=== PATIENT | female | born 1995 | race Caucasian/White ===

== ENCOUNTER 2017-09-04 14:38 | Emergency (ER) | payer BC, OTHER ==
[2017-09-04] MEDS ORDERED: DIPHENHYDRAMINE HCL 50 MG/ML VIAL IV ONE (16:06)
[2017-09-04] MEDS ORDERED: NORMAL SALINE 1000 ML 1,000 ML IV ONE (16:06)
[2017-09-04] MEDS ORDERED: METOCLOPRAMIDE HCL INJ/PF 10 MG/2 ML SDV IV ONE (16:07)
[2017-09-04 16:56] LABS: ABSOLUTE BASOPHILS # (AUTO) 0.1 10^3/uL (0.0-0.2); ABSOLUTE EOSINOPHILS # (AUTO) 0.1 10^3/uL (0.0-0.6); ABSOLUTE MONOCYTES (AUTO) 0.4 10^3/uL (0.1-1.4); ABSOLUTE NEUT (AUTO) 5.1 10^3/uL (1.7-8.2); BASOPHILS % (AUTO) 0.7 % (0-2); EOSINOPHILS % (AUTO) 0.8 % (0-6); HEMATOCRIT 39.1 % (36.0-47.0); HEMOGLOBIN 13.5 g/dL (12.0-15.5); HGB HCT DIFFERENCE 1.4; MEAN CORPUSCULAR HEMOGLOBIN 30.8 pg (27.0-33.4); MEAN CORPUSCULAR HGB CONC 34.5 g/dL (32.0-36.0); MEAN CORPUSCULAR VOLUME 89 fl (80-97); MONOCYTES % (AUTO) 4.9 % (3-13); RED BLOOD COUNT 4.38 10^6/uL (3.72-5.28); RED CELL DISTRIBUTION WIDTH 13.4 % (11.5-14.0); SEGMENTED NEUTROPHILS % (AUTO) 67.6 % (42-78); WHITE BLOOD COUNT 7.6 10^3/uL (4.0-10.5)
--- NOTE | 2017-09-04 17:11 | RADIOLOGY REPORT (SQ) ---
EXAM DESCRIPTION: CT HEAD WITHOUT COMPLETED DATE/TIME: 09/04/2017 5:02 pm REASON FOR STUDY: HX Migraines with different presentation COMPARISON: None. TECHNIQUE: Axial images acquired through the brain without intravenous contrast. Images reviewed wi th bone, brain and subdural windows. Images stored on PACS. All CT scanners at this facility use dose modulation, iterative reconstruction, and/or weight based d osing when appropriate to reduce radiation dose to as low as reasonably achievable (ALARA). [facility]: Dose Right [facility]: CareDose [facility]: Dose Right [facility]: Teradose 4D [facility]: [employer] RADIATION DOSE: mGy. LIMITATIONS: None. FINDINGS: VENTRICLES: Normal size and contour. CEREBRUM: No masses. No hemorrhage. No midline shift. No evidence for acute infarction. Normal gra y/white matter differentiation. No areas of low density in the white matter. CEREBELLUM: No masses. No hemorrhage. No alteration of density. No evidence for acute infarction. EXTRAAXIAL SPACES: No fluid collections. No masses. ORBITS AND GLOBE: No intra- or extraconal masses. Normal contour of globe without masses. CALVARIUM: No fracture. PARANASAL SINUSES: No fluid or mucosal thickening. SOFT TISSUES: No mass or hematoma. OTHER: No other significant finding. IMPRESSION: NORMAL BRAIN CT WITHOUT CONTRAST. EVIDENCE OF ACUTE STROKE: NO. COMMENT: Quality ID # [id number]: Final reports with documentation of one or more dose reduction techniques (e.g., Automated exposure control, adjustment of the mA and/or kV according to patient size, use of iterative reconstruction technique) TECHNICAL DOCUMENTATION: JOB ID: [id number] [employer]- All Rights Reserved
[2017-09-04 17:15] LABS: ALANINE AMINOTRANSFERASE 26 U/L (9-52); ALBUMIN 4.2 g/dL (3.5-5.0); ALKALINE PHOSPHATASE 58 U/L (38-126); ANION GAP 12 (5-19); ASPARTATE AMINO TRANSFERASE 19 U/L (14-36); BILIRUBIN,DIRECT 0.1 mg/dL (0.0-0.4); BILIRUBIN,TOTAL 0.5 mg/dL (0.2-1.3); BLOOD UREA NITROGEN 10 mg/dL (7-20); CALCIUM 9.5 mg/dL (8.4-10.2); CARBON DIOXIDE 26 mmol/L (22-30); CHLORIDE 107 mmol/L (98-107); CREATININE RESULT 0.75 mg/dL (0.52-1.25); GLUCOSE 81 mg/dL (75-110); POTASSIUM 4.5 mmol/L (3.6-5.0); SODIUM 144.5 mmol/L (137-145)
[2017-09-04 17:16] LABS: C-REACTIVE PROTEIN < 5.0 mg/L (<10.0)
[2017-09-04 17:33] LABS: ERYTHROCYTE SEDIMENTATION RATE 18 mm/hr (0-20)
[2017-09-04 18:38] LABS: APPEARANCE,URINE SLIGHTLY-CLOUDY; BILIRUBIN,URINE NEGATIVE (NEGATIVE); GLUCOSE, URINE NEGATIVE (NEGATIVE); KETONES,URINE NEGATIVE (NEGATIVE); LEUKOCYTE ESTERASE,URINE NEGATIVE (NEGATIVE); NITRITE,URINE NEGATIVE (NEGATIVE); PROTEIN,URINE NEGATIVE (NEGATIVE)
--- NOTE | 2017-09-04 18:52 | ER Document Report ---
ED Headache - General Chief Complaint: Headache >24 hrs old Stated Complaint: HEADACHE, FACIAL NUMBNESS Time Seen by Provider: 09/04/17 15:50 Mode of Arrival: Ambulatory Information source: Patient, Parent Notes: Patient is a 22-year-old white female brought into emergency room by mom with complaint of an onset of a migraine headache for 3 days. Patient took her sumatriptan pain over the past 2 days with no relief. She did state that her headache started to let up a little yesterday but when she woke up this morning she had numbness on the left side of her face that is a new presentation for and she had a headache back again with nausea and she vomited once. Mother states that they are primarily here because the new presentation with numbness on the left side of the face bothers her. Patient has a neurologist that she sees and will follow up with him after this visit if she gets to go home according to mom and patient. Patient has been here before for headache but is been over a year. She denies any fever. Or no other neurologic deficits with the exception of the numbness to the face. Her normal presentation of migraine is either left or right but never both and never any numbness. She denies any ocular pressures she also states that she also will alternate between photophobia and no photophobia and sound and no sound. During the examination mother did remember the patient started new control pills for the first time 1 month ago and up until starting the control patient has not had a headache in over a year. TRAVEL OUTSIDE OF THE [place] IN LAST 30 DAYS: No - HPI Patient complains to provider of: Headache, "Migraine" Patient reports: Hx chronic headaches Onset: Other Onset was: Abrupt - 3 days Timing: Still present Quality of pain: Dull, Throbbing Severity: Severe Pain Level: 4 Context: denies: CO exposure, Head injury, Insect bite, Meningitis exposure, Tick bite, Other Preceding symptoms: denies: Typical of prior aura(s), Visual disturbance, Other Worse/persistent since: 3 days ago Associated symptoms: Nausea/vomiting, Tingling/numb sensation. denies: None, Chills, Confusion, Dizzy, Double/blurred vision, Fainting, Fever, Lightheaded, Memory loss, Motion sickness, Motor/sensory loss to arm, Motor/sensory loss to leg, Neck pain, Photophobia, Speech problems, Stiff neck, Sweaty, Trouble walking, Other Exacerbated by: Light, Noise Similar symptoms previously: Yes Recently seen / treated by doctor: No - Related Data Allergies/Adverse Reactions: latex [Latex] Allergy (Verified 09/04/17 14:43) Past Medical History - General Information source: Patient, Parent Last Menstrual Period: First of the month. - Social History Smoking Status: Never Smoker Frequency of alcohol use: None Drug Abuse: None Family History: Reviewed & Not Pertinent Patient has suicidal ideation: No Patient has homicidal ideation: No Neurological Medical History: Reports: Hx Migraine Renal/ Medical History: Denies: Hx Peritoneal Dialysis - Immunizations Hx Diphtheria, Pertussis, Tetanus Vaccination: Yes Review of Systems - Review of Systems Constitutional: No symptoms reported EENT: No symptoms reported Cardiovascular: No symptoms reported Respiratory: No symptoms reported Gastrointestinal: No symptoms reported Genitourinary: No symptoms reported Female Genitourinary: No symptoms reported Musculoskeletal: No symptoms reported Skin: No symptoms reported Hematologic/Lymphatic: No symptoms reported Neurological/Psychological: Sensory change, Headaches. denies: No symptoms reported, See HPI, Confusion, Dementia, Depression, Hallucinations, Anxiety, Homicidal ideation, Weakness, Gait changes, Loss of power, Paralysis, Seizure, Lost consciousness, Speech impairment, Numbness, Suicidal ideation, Tingling, Tremor, Other Physical Exam - Vital signs Vitals: Temp Pulse Resp BP Pulse Ox 98.4 F 107 H 17 127/81 H 97 09/04/17 14:43 09/04/17 14:43 09/04/17 14:43 09/04/17 14:43 09/04/17 14:43 Interpretation: Tachycardic - General General appearance: Appears well, Alert - HEENT Head: Normocephalic, Atraumatic Eyes: Normal Conjunctiva: Normal Cornea: Normal - Respiratory Respiratory status: No respiratory distress Chest status: Nontender Breath sounds: Normal. No: Decreased air movement, Nonproductive cough, Productive cough, Rales, Rhonchi, Stridor, Wheezing, Other - Cardiovascular Rhythm: Tachycardia Heart sounds: Normal auscultation Murmur: No - Abdominal Inspection: Normal Distension: No distension Bowel sounds: Normal Tenderness: Nontender - Neurological Neuro grossly intact: Yes Cognition: Normal Orientation: AAOx4 [place] Coma Scale Eye Opening: Spontaneous [place] Coma Scale Verbal: Oriented [place] Coma Scale Motor: Obeys Commands [place] Coma Scale Total: 15 Speech: Normal Notes: Patient's neurological exam was 100% normal with the exception of some mild numbness on the left side of the face to touch. Patient have full functionality of all her facial muscles. It was a sensation of numbness that was the differential and her coming to ER for a new presentation. - Psychological Associated symptoms: Normal affect, Normal mood - Skin Skin Temperature: Warm Skin Moisture: Dry Skin Color: Normal, [place] Course - Vital Signs Vital signs: Temp Pulse Resp BP Pulse Ox 97.4 F 84 18 116/74 100 09/04/17 19:01 09/04/17 19:01 09/04/17 19:01 09/04/17 19:01 09/04/17 19:01 - Laboratory Result Diagrams: 09/04/17 16:30 09/04/17 16:30 Laboratory results interpreted by me: 09/04/17 17:55 Urine Urobilinogen 2.0 H Urine Ascorbic Acid 40 H - Diagnostic Test Radiology reviewed: Reports reviewed - CT head negative - Transfer of Care Notes: 09/05/17 02:29 Patient's course of stay here showed great improvement with fluids and the Reglan Benadryl combination. Patient's labs were normal her sed rate and CRP were also normal. Urine was negative. I have another discussion with mom and daughter and inform them that they should keep their appointment with the neurologist as we discussed. Patient's numbness to her face disappeared completely and patient was actually smiling and happy when she left the emergency room. Discharge - Discharge Clinical Impression: Migraine Qualifiers: Migraine type: without aura Status migrainosus presence: without status migrainosus Intractability: not intractable Qualified Code(s): G43.009 - Migraine without aura, not intractable, without status migrainosus Condition: Good Disposition: HOME, SELF-CARE Instructions: Migraine Headache ([facility]) Additional Instructions: Home and rest. I would highly suggest continuing your headache medication at the onset of a headache. I have given you all the labs and CT reports that we done today are normal. This should not discourage her from following up with a neurologist. With a change in presentation it is always important to have a neurologist intervene. There may be more interventions to be a up pain like an MRI that we do not do out of the emergency room. At this time feeling as good as you do we can discharge her home I will write you for some nausea medication and you may contact your primary/neurologist tomorrow to establish a appointment time. However should you have any change in the presentation of this headache or have any concerns return to ER for a recheck. Prescriptions: Promethazine HCl [Phenergan 25 mg Tablet] 25 mg PO Q4HP PRN #20 tablet PRN Reason: Forms: Elevated Blood Pressure, Parent Work Note Referrals: JONAS SALAZAR MD [Primary Care Provider] - Follow up as needed
[2017-09-04 19:02] VITALS: BP 116/74
== END 2017-09-04 19:02 | disposition home or self-care (01) ==
LOC: ER 14:38
DX: G43.009 Migraine without aura, not intractable, without status migrainosus (principal); R20.0 Anesthesia of skin
CPT/HCPCS: 99284; 96361; 96374; 96375; 36415; 85025; 85652; 81025; 86140; 80053; 81001; 70450; J1200; J2765; J7030